=== PATIENT | female | born 1985 | race Caucasian/White ===

== ENCOUNTER 2016-09-06 19:48 | Inpatient (IN) | payer BC ==
[2016-09-06] MEDS ORDERED: Acetaminophen TAB* 325 MG PO PRN (20:26)
[2016-09-06] MEDS ORDERED: Witch Hazel PAD* JAR TOPICAL PRN (20:26)
[2016-09-06] MEDS ORDERED: Glycerin ADULT SUPP PR PRN (20:26)
[2016-09-06] MEDS ORDERED: Dibucaine 1% 28.35 GM TUBE PR PRN (20:26)
[2016-09-07 06:46] LABS: Hematocrit 31 % (35-47); Hemoglobin 10.3 g/dl (12.0-16.0); Mean Corpuscular HGB Conc 33 g/dl (31-36); Mean Corpuscular Hemoglobin 29 pg (27-31); Mean Corpuscular Volume 88 fL (80-97); Mean Platelet Volume 9 um3 (7.4-10.4); Red Blood Count 3.55 10^6/ul (4.0-5.4); Red Cell Distribution Width 13 % (10.5-15); White Blood Count 17.6 10^3/ul (3.5-10.8)
[2016-09-07] MEDS: Simethicone CHEW TAB* 80 MG PO SCH ×4 (07:55→17:40)
[2016-09-07] MEDS: Docusate CAP* 100 MG PO SCH ×4 (07:56→20:03)
[2016-09-07] MEDS ORDERED: Ferrous Gluconate TAB* 324 MG TAB PO SCH (09:00)
[2016-09-07] MEDS: Ibuprofen TAB* 600 MG PO PRN ×2 (14:19→20:04)
[2016-09-07 20:33] VITALS: BP 105/52
[2016-09-08] MEDS: Ibuprofen TAB* 600 MG PO PRN ×2 (05:31→11:08)
[2016-09-08] MEDS: Docusate CAP* 100 MG PO SCH (08:44)
== END 2016-09-08 11:31 | disposition home or self-care (01) | DRG 560 ==
LOC: MCHOBOUT 19:48 → MCHOB 19:49
PROVIDERS: ADMIT Nurse Practitioner; ATTEND Nurse Practitioner
PROC: 0HQ9XZZ Repair Perineum Skin, External Approach (ICD-10-PCS; principal; 2016-09-06)
DX: O70.0 First degree perineal laceration during delivery (principal); M41.9 Scoliosis, unspecified; Z3A.39 39 weeks gestation of pregnancy
CPT/HCPCS: 36415; 85025; A9270-GY